=== PATIENT | male | born 1940 | race Caucasian/White ===

== ENCOUNTER 2024-08-01 09:03 | Inpatient (IN) | payer MEDICARE, SELFPAY ==
--- NOTE | 2024-08-01 09:00 | DI.CT_ITS ---
Exam(s) CT HEAD CERVICAL SPINE WO EXAM: CT HEAD CERVICAL SPINE WO CLINICAL HISTORY: Multiple falls. TECHNIQUE: Imaging Protocol: Axial computed tomography images with coronal and sagittal reformatted images were created and reviewed COMPARISON: No exams were available for comparison FINDINGS: Head CT Ventricles and Extra axial spaces: Normal in size and morphology for the patient's age. Hemorrhage: None. Cerebral parenchyma: No evidence of mass or acute infarct. [id number] atrophy consistent wit h the patient's age. Midline shift: None. Brainstem/Cerebellum: Normal. Calvarium: Normal. Visualized Paranasal sinuses/Mastoids: Cerumen in the left external auditory canal. Soft tissues: Unremarkable. Cervical Spine CT BONES: Vertebral body heights are maintained. Alignment is normal. There is no evidence of acute frac ture. Degenerative disc changes and facet degenerative changes are seen. No significant central canal sten osis. SOFT TISSUES: No paraspinal hematoma. The airway appears intact. No pneumothorax is seen at the lung apices. Emphysematous changes noted. IMPRESSION: Head CT: No acute abnormality. C-spine CT: Degenerative changes, no acute abnormality. RADIATION DOSE DELIVERED: 1,298.54mGy.cm Total DLP DATA REPOSITORY: All CT scans at this facility are submitted to the National Radiology Data Registry (NRDR) Dose Index Registry (DIR) with the [employer] (ACR). RADIATION OPTIMIZATION: All CT scans at this facility use at least one of these dose optimization te chniques: automated exposure control; mA and/or kV adjustment per patient size (includes targeted exa ms where dose is matched to clinical indication); or iterative reconstruction.
[2024-08-01 09:12] VITALS: BP 104/49; PULSE 108; RESP 18; TEMP 36.4; O2SAT 95
[2024-08-01 09:30] LABS: Bilirubin Negative (Negative); Blood Small (Negative); Clarity Sl Cloudy (Clear); Glucose Negative (Negative); Ketones Negative (Negative); Leukocyte Esterase Large (Negative); Nitrite Negative (Negative); Specific Gravity 1.015 (1.005-1.025); Urobilinogen 0.2 mg/dL (Up to 0.2); pH 5.5 (5-8)
[2024-08-01 09:35] LABS: C & S Indicated? Yes; WBC >50 HPF (0-5)
[2024-08-01] MEDS: Haloperidol 5 MG/ML VIAL 2 MG IM/IV (09:40)
[2024-08-01 09:44] LABS: Abs Immature Grans 0.38 10^3/uL (0.0-0.06); Absolute Monocyte Count 0.87 10^3/uL (0.1-0.8); Absolute Neutrophil Count 24.48 10^3/uL (1.2-6.7); Basophils % 0.2 %; Eosinophils % 0.5 %; HCT 46.4 % (40.0-50.0); HGB 14.9 g/dL (13.5-17.5); Immature Grans % 1.4 %; Lymphocytes % 2.1 %; MCH 27.2 pg (27.0-33.0); MCHC 32.1 % (32.0-36.0); MCV 85 fL (80-95); MPV 10.5 fL (8.0-11.0); Monocytes % 3.3 %; Neutrophils % 92.5 %; Platelet Count 204 10^3/uL (130-400); RBC 5.47 10^6/uL (4.36-5.78); RDW 13.4 % (11.8-14.1); RDW-SD 41.5 fL
[2024-08-01] MEDS: Fosfomycin Tromethamine 3 GM PACKET PO (09:44)
[2024-08-01 09:47] LABS: Absolute Basophil Count 0.05 10^3/uL (0.0-0.2); Absolute Eosinophil Count 0.13 10^3/uL (0.0-0.7); Absolute Lymphocyte Count 0.56 10^3/uL (1.2-3.4); WBC 26.46 10^3/uL (4.4-10.8)
[2024-08-01 09:59] LABS: Diff Comment Agrees w/ Instrument; RBC Morphology Normal
[2024-08-01 10:02] LABS: ALT 21 U/L (16-63); AST 30 U/L (15-37); Albumin 3.5 g/dL (3.4-5.0); Alkaline Phosphatase 118 U/L (46-116); Anion Gap 12.5 mmol/L (3-11); BUN 36 mg/dL (7-18); Bilirubin, Total 0.89 mg/dL (0.2-1.0); CO2 24.5 mmol/L (21.0-32.0); CREATININE 2.2 mg/dL (0.70-1.30); Calcium 9.5 mg/dL (8.5-10.1); Chloride 105 mmol/L (98-107); Estimated GFR 28.81 (mL/min/1.73m2); Glucose 119 mg/dL (74-106); Magnesium 1.8 mg/dL (1.8-2.4); Potassium 4.3 mmol/L (3.5-5.1); Sodium 142 mmol/L (136-145); Total Protein 8.4 g/dL (6.4-8.2)
--- NOTE | 2024-08-01 10:54 | W.ED.GENAD ---
Discharge Plan Disposition Patient Disposition: Admit to [facility] Condition: Stable Discharge Details Chief Complaint: Fall/Non TraumaCriteria Clinical Impression: UTI (urinary tract infection), Severe sepsis, YESENIA (acute kidney injury), Infectious encephalopathy, Dementia Primary Care Provider: Emil Dominguez ED Provider: Caroline Velez Home Meds and New Rx's Prescriptions: No Action Unable to Obtain HPI General Mode of arrival: EMS. Date/Time Provider Initiated Documentation: 08/01/24 09:14. Limitations to Documentation: altered mental status. Information obtained by: patient, family and old records reviewed. HPI Narrative: HPI: This is an 84-year-old male patient with a past medical history significant for dementia, currently not taking any medications due to patient refusal, who is presenting for evaluation of altered mental status and falls. History is largely obtained from the patient's and daughter, who are at bedside. The patient has had 1 week of worsening confusion, increased agitation, and urinary incontinence. Family was concerned that he may have a urinary tract infection, states that he has not had fevers, has been eating and drinking, and has been ambulatory. Today he took 3 falls in a row, and they noticed that he had pulled the recliner into the kitchen, and had urinated on the floor. EMS was summoned, found him to be hemodynamically appropriate, and brought him in for an evaluation. Family reports that they are typically able to care for him in the home environment but are concerned for his safety given his increased agitation and falls and confusion that is above his baseline. Exam: Gen: Awake and alert, in no apparent distress. HEENT: Non-icteric sclera, pupils equal and reactive, scalp atraumatic Neck: Supple, no step-offs, no tenderness to C-spine Lungs: No apparent respiratory distress, normal respiratory effort. Lung sounds clear and equal bilaterally CV: Appears well perfused, heart with tachycardic rate but regular rhythm Abdomen: Non-distended, soft, nontender : Normal external male genitalia with irritation and eroded ulcers appreciated under the patient's foreskin MSK: Moves 4 extremities without apparent limitation in ROM. No tenderness or step-offs to T or L-spine, chest wall, clavicles, and upper extremities without external signs of trauma, deformity, or tenderness. Pelvis stable to AP compression, bilateral lower extremities without tenderness, deformity, or evidence of external trauma. Skin: Visualized skin without rashes, cyanosis. Neuro: No obvious focal deficits or facial asymmetry. Alert but not oriented to place, time, event. Answers simple questions and follow simple directions. MDM: This is an 84-year-old male patient presenting for evaluation of increasing confusion, incontinence, and falls. Differential includes but is not limited to urinary tract infection, certainly considered other infectious abnormalities such as bacteremia or sepsis, meningitis, though the patient is reassuringly afebrile at this time and systemically looks quite well. I considered metabolic electrolyte derangement, kidney injury, dehydration. Also considered injury such as intracranial hemorrhage (patient is not anticoagulated), cervical spine fracture. No evidence of other traumatic findings, full physical examination. We will obtain laboratory studies to include CBC, CMP, magnesium, urinalysis. I will obtain a CT head and C-spine. We applied zinc cream to the patient's penis given the evidence of irritation concerning for prolonged moisture exposure. ED Course: The patient became quite agitated, trying to get out of bed, and not allowing interventions such as laboratory studies. The patient was unable to be verbally redirected, and we did provide him with a small dose of haloperidol. This was successful in calming the patient, and we were able to perform all imaging and laboratory studies as needed. The patient's urinalysis does show pyuria, leukocyte esterase elevation and small blood, concerning for infection. Given the patient's hesitant to take p.o. meds, I discussed with the family members and we will proceed with a one-time dose of fosfomycin, 3 g, which the patient took orally. I reviewed the patient's laboratory studies, which reveal a leukocytosis to 26 with left shift. No anemia or thrombocytopenia. Chemistry panel without electrolyte derangements, though he does have an elevation in his kidney function from his baseline concerning for YESENIA, with a BUN of 36 and creatinine of 2.2. I provided the patient with 500 cc of isotonic fluids for rehydration. I independently interpreted the patient's CT scans, which showed no evidence of intracranial hemorrhage, skull spine fracture, or other concerning findings. I did shared decision-making conversation with the family members regarding next steps in treatment. The patient's family are concerned about their ability to safely care for the patient in the home, and given that there is a reversible etiology for the patient's increasing confusion I feel the nausea short admission with PT/OT and care management as well as ongoing antibiosis if he does not improve with his dose of fosfomycin are indicated. The hospitalist is graciously accepted this patient for admission to their service for ongoing care. Patient remained hemodynamically appropriate while under my care and was transferred from this department without incident. Caroline Velez MD Related Data Home Medications ?Medication ?Instructions ?Recorded ?Confirmed Unknown [Unable to Obtain] 08/01/24 08/01/24 General Stated Complaint: Fall/Non TraumaCriteria TI: 3 Course Vital Signs Vital signs: Vital Signs Temperature 36.4 C 08/01/24 09:12 Pulse 108 H 08/01/24 09:12 Respiratory Rate 18 08/01/24 09:12 Blood Pressure 104/49 L 08/01/24 09:12 Pulse Oximetry 95 08/01/24 09:12 Temperature 36.4 C 08/01/24 09:12 Temperature Source Temporal Artery Scan 08/01/24 09:12 Pulse 108 H 08/01/24 09:12 Respiratory Rate 18 08/01/24 09:12 Respiratory Effort Normal 08/01/24 09:24 Blood Pressure 104/49 L 08/01/24 09:12 Blood Pressure Position Sitting 08/01/24 09:12 Pulse Oximetry 95 08/01/24 09:12 Oxygen Delivery Method Room Air 08/01/24 09:12 Oxygen Flow Rate 0 08/01/24 09:12 Lab/Test Results Lab/Test Results: 08/01/24 09:21 Urine - Reflex from Ua Urine Culture - Pending Laboratory Tests Range/Units 08/01/24 08/01/24 09:21 09:36 WBC (4.4-10.8) 10^3/uL 26.46 H* RBC (4.36-5.78) 10^6/uL 5.47 Hgb (13.5-17.5) g/dL 14.9 Hct (40.0-50.0) % 46.4 MCV (80-95) fL 85 MCH (27.0-33.0) pg 27.2 MCHC (32.0-36.0) % 32.1 RDW (11.8-14.1) % 13.4 Plt Count (130-400) 10^3/uL 204 MPV (8.0-11.0) fL 10.5 Immature Gran % % 1.4 Neutrophils % % 92.5 Lymphocytes % % 2.1 Monocytes % % 3.3 Eosinophils % % 0.5 Basophils % % 0.2 Nucleated RBC % (0.0-0.3) % 0.0 Absolute Neutrophils (1.2-6.7) 10^3/uL 24.48 H Absolute Lymphocytes (1.2-3.4) 10^3/uL 0.56 L Absolute Monocytes (0.1-0.8) 10^3/uL 0.87 H Absolute Eosinophils (0.0-0.7) 10^3/uL 0.13 Absolute Basophils (0.0-0.2) 10^3/uL 0.05 RBC Morphology Normal Sodium (136-145) mmol/L 142 Potassium (3.5-5.1) mmol/L 4.3 Chloride (98-107) mmol/L 105 Carbon Dioxide (21.0-32.0) mmol/L 24.5 Anion Gap (3-11) mmol/L 12.5 H BUN (7-18) mg/dL 36 H Creatinine (0.70-1.30) mg/dL 2.2 H Est GFR (CKD-EPI 2020) (mL/min/1.73m2) 28.81 Glucose (74-106) mg/dL 119 H Calcium (8.5-10.1) mg/dL 9.5 Magnesium (1.8-2.4) mg/dL 1.8 Total Bilirubin (0.2-1.0) mg/dL 0.89 AST (15-37) U/L 30 ALT (16-63) U/L 21 Alkaline Phosphatase (46-116) U/L 118 H Total Protein (6.4-8.2) g/dL 8.4 H Albumin (3.4-5.0) g/dL 3.5 Urine Color (Yellow) Yellow Urine Clarity (Clear) Sl Cloudy Urine pH (5-8) 5.5 Ur Specific [place] (1.005-1.025) 1.015 Urine Protein (Neg-Trace) mg/dL 30 H Urine Ketones (Negative) mg/dL Negative Urine Blood (Negative) Small H Urine Nitrite (Negative) Negative Urine Bilirubin (Negative) Negative Urine Urobilinogen (Up to 0.2) mg/dL 0.2 Ur Leukocyte Esterase (Negative) Large H Urine RBC Not Applicable Urine WBC (0-5) HPF >50 H Ur Epithelial Cells Not Applicable Urine Crystals Not Applicable Urine Bacteria Not Applicable Urine Mucus Not Applicable Ur Culture Indicated? Yes Urine Glucose (Negative) mg/dL Negative Medical Decision Making Quality:SDOH Health Related Social Needs: Health related social needs housing instability, housed, with risk of homelessness(Z59.811) PFSH All Active Problems (Updated 08/01/24 @ 11:05 by Caroline Velez MD) Dementia (Chronic) Infectious encephalopathy (Acute) YESENIA (acute kidney injury) (Acute) UTI (urinary tract infection) (Acute) Severe sepsis (Acute) Social History Smoking/Tobacco Use Status: Never Smoking risk assessment performed?: Yes Alcohol Intake: never Housing: house Additional Social history: unable to assess d/t dementia
[2024-08-01] MEDS: Normal Saline 500 ML IV (11:00)
--- NOTE | 2024-08-01 11:00 | W.PM.HP.N ---
Date of service: 08/01/24 Time of Service: 11:00 Assessment and Plan Assessment and plan (1) Severe sepsis: Status: Acute Assessment and plan: -patient meets severe sepsis criteria on admission with WBC 26, HR 108, UA highly suggestive of UTI, YESENIA with Cr 2.2 (baseline ~1.6), and increased confusion above baseline suggestive of infectious encephalopathy -lactic acid pending -f/u blood and urine cultures -given fosfomycin in ED -f/u AM CBC (2) UTI (urinary tract infection): Status: Acute Assessment and plan: -as noted above (3) YESENIA (acute kidney injury): Status: Acute Assessment and plan: -as noted above (4) Infectious encephalopathy: Status: Acute Assessment and plan: -patietn with dementia at baseline but normally able to manage him at home -no history of behavioral disturbances -brought in because of increased confusion, urinating and defecating around the home over the last week -also required IM haldol in ED for agitation -monitor mental status/behaviors (5) Dementia: Status: Chronic Assessment and plan: -as noted above -according to patients daughters he can be aggressive and does sundown, they have requested initiation of an HS medication that they may be able to transtion to the outpatient setting -patient has been started on HS seroquel History of Present Illness History of Present Illness Chief Complaint: increased confusion Narrative: 84yo male with history of dementia who presents to the ED for concerns of increased confusion. Patient states that she is normally able to take care of the patient at home with frequent visits from home health, but that over the last week he has been progressively more confused, urinating and defecating around the home and experience two falls earlier today, which is not normal. She states he had not complained of any urinary symptoms, and did not appear to have a fever. In the ED the patient was noted as being confused with an otherwise normal physical exam. His HR was 108, CBC showed WBC 26, Cr 2.1 (baseline ~1.6), and UA highly suggestive of a UTI. He was initially given fosfomycin thinking he may be able to discharge home, but the patient became combative and required IM haldol to complete head/neck CT which were negative. At which time emergency room Physician paged hospitalists for admission of a patient with severe sepsis UTI, YESENIA, and infectious encephalopathy. Review of Systems All systems reviewed & are unremarkable except as noted in HPI and below PFSH All Active Problems (Updated 08/01/24 @ 11:05 by Caroline Velez MD) Dementia (Chronic) Infectious encephalopathy (Acute) YESENIA (acute kidney injury) (Acute) UTI (urinary tract infection) (Acute) Severe sepsis (Acute) Social History Smoking/Tobacco Use Status: Never Smoking risk assessment performed?: Yes Alcohol Intake: never Housing: house Additional Social history: unable to assess d/t dementia Meds Allergies and Home Medications Allergies Allergy/AdvReac Type Severity Reaction Status Date / Time No Known Allergies Allergy Verified 08/01/24 12:28 Home Medications ?Medication ?Instructions ?Recorded ?Confirmed ?Type Unknown [Unable to Obtain] 08/01/24 08/01/24 History Exam Narrative Exam Narrative: elderly gentleman laying in bed in mild distress due to pain, oriented to person only, heart RRR, lungs CTAB, abdomen soft, non-tender, non-distended Results Labs 08/01/24 09:36 08/01/24 09:36 Labs: Laboratory Results - last 24 hr 08/01/24 08/01/24 09:21 09:36 WBC 26.46 H* RBC 5.47 Hgb 14.9 Hct 46.4 MCV 85 MCH 27.2 MCHC 32.1 RDW 13.4 Plt Count 204 MPV 10.5 Immature Gran % 1.4 Neutrophils % 92.5 Lymphocytes % 2.1 Monocytes % 3.3 Eosinophils % 0.5 Basophils % 0.2 Nucleated RBC % 0.0 Absolute Neutrophils 24.48 H Absolute Lymphocytes 0.56 L Absolute Monocytes 0.87 H Absolute Eosinophils 0.13 Absolute Basophils 0.05 RBC Morphology Normal Sodium 142 Potassium 4.3 Chloride 105 Carbon Dioxide 24.5 Anion Gap 12.5 H BUN 36 H Creatinine 2.2 H Est GFR (CKD-EPI 2020) 28.81 Glucose 119 H Calcium 9.5 Magnesium 1.8 Total Bilirubin 0.89 AST 30 ALT 21 Alkaline Phosphatase 118 H Total Protein 8.4 H Albumin 3.5 Urine Color Yellow Urine Clarity Sl Cloudy Urine pH 5.5 Ur Specific [place] 1.015 Urine Protein 30 H Urine Ketones Negative Urine Blood Small H Urine Nitrite Negative Urine Bilirubin Negative Urine Urobilinogen 0.2 Ur Leukocyte Esterase Large H Urine RBC Not Applicable Urine WBC >50 H Ur Epithelial Cells Not Applicable Urine Crystals Not Applicable Urine Bacteria Not Applicable Urine Mucus Not Applicable Ur Culture Indicated? Yes Urine Glucose Negative Last Vital Signs Temp 97.6 F 08/01/24 09:12 Pulse 108 H 08/01/24 09:12 Resp 18 08/01/24 09:12 BP 104/49 L 08/01/24 09:12 Pulse Ox 95 08/01/24 09:12 Time Spent Time spent with Patient: >75 minutes Time was spent: preparing to see the patient(eg.review tests), obtaining and/or reviewing separately otained hiistory, ordering medications,tests, procedures, referring, communicating with other health care team coordinator scheduler, indepentently interpreting results, counseling the patient and care coordination
[2024-08-01 11:50] VITALS: BP 126/71; PULSE 62; RESP 20; TEMP 37.3; O2SAT 95
[2024-08-01 11:55] VITALS: BP 126/71; PULSE 62; RESP 20; TEMP 37.3; O2SAT 95
[2024-08-01 11:56] VITALS: BP 126/71; PULSE 62; RESP 20; TEMP 37.3; O2SAT 95
[2024-08-01 12:00] VITALS: BP 126/71; PULSE 62; RESP 20; TEMP 37.3; O2SAT 95
--- NOTE | 2024-08-01 13:01 | W.PC.ACHO ---
Registration Status: Primary Language: Preferred Language: ED Information & Data Chief Complaint Fall/Non TraumaCriteria 08/01/24 10:55 Triage Note Pt presents via ambulance, 08/01/24 09:12 fell multiple times at home due to weakness. Daughter states he has a history of dementia, has been urinating in random places in the house. UTI? No apparent injuries noted on exam. Most Recent Vital Signs Temperature 37.3 C 08/01/24 12:00 Temperature Source Tympanic 08/01/24 11:56 Pulse 62 08/01/24 12:00 Pulse Rhythm Regular 08/01/24 12:00 Respiratory Rate 20 08/01/24 12:00 Respiratory Effort Normal 08/01/24 12:00 Respiratory Depth Normal 08/01/24 12:00 Respiratory Pattern Normal 08/01/24 12:00 Blood Pressure 126/71 08/01/24 12:00 Blood Pressure Position Sitting 08/01/24 09:12 Pulse Oximetry 95 08/01/24 12:00 Oxygen Delivery Method Room Air 08/01/24 12:00 Oxygen Flow Rate 0 08/01/24 12:00 Pain Level 5 08/01/24 12:00 Allergies No Known Allergies Allergy (Verified 08/01/24 12:28) Precautions Isolation Standard precaution 08/01/24 09:24 IV IV Catheter Type [Right Peripheral IV Forearm] IV Catheter Gauge [Right 20 Forearm] Diet Orders Category Date Time Status Regular/Normal [DIET] Nutrition 08/01/24 Lunch Active Diagnostics 08/01/24 08/01/24 08/01/24 Range/Units 11:00 09:36 09:21 WBC 26.46 H* (4.4-10.8) 10^3/uL RBC 5.47 (4.36-5.78) 10^6/uL Hgb 14.9 (13.5-17.5) g/dL Hct 46.4 (40.0-50.0) % MCV 85 (80-95) fL MCH 27.2 (27.0-33.0) pg MCHC 32.1 (32.0-36.0) % RDW 13.4 (11.8-14.1) % Plt Count 204 (130-400) 10^3/uL MPV 10.5 (8.0-11.0) fL Immature Gran % 1.4 % Neutrophils % 92.5 % Lymphocytes % 2.1 % Monocytes % 3.3 % Eosinophils % 0.5 % Basophils % 0.2 % Nucleated RBC % 0.0 (0.0-0.3) % Absolute Neutrophils 24.48 H (1.2-6.7) 10^3/uL Absolute Lymphocytes 0.56 L (1.2-3.4) 10^3/uL Absolute Monocytes 0.87 H (0.1-0.8) 10^3/uL Absolute Eosinophils 0.13 (0.0-0.7) 10^3/uL Absolute Basophils 0.05 (0.0-0.2) 10^3/uL RBC Morphology Normal VBG Lactate Pending Sodium 142 (136-145) mmol/L Potassium 4.3 (3.5-5.1) mmol/L Chloride 105 (98-107) mmol/L Carbon Dioxide 24.5 (21.0-32.0) mmol/L Anion Gap 12.5 H (3-11) mmol/L BUN 36 H (7-18) mg/dL Creatinine 2.2 H (0.70-1.30) mg/dL Est GFR (CKD-EPI 2020) 28.81 (mL/min/1.73m2) Glucose 119 H (74-106) mg/dL Calcium 9.5 (8.5-10.1) mg/dL Magnesium 1.8 (1.8-2.4) mg/dL Total Bilirubin 0.89 (0.2-1.0) mg/dL AST 30 (15-37) U/L ALT 21 (16-63) U/L Alkaline Phosphatase 118 H (46-116) U/L Total Protein 8.4 H (6.4-8.2) g/dL Albumin 3.5 (3.4-5.0) g/dL Urine Color Yellow (Yellow) Urine Clarity Sl Cloudy (Clear) Urine pH 5.5 (5-8) Ur Specific [place] 1.015 (1.005-1.025) Urine Protein 30 H (Neg-Trace) mg/dL Urine Ketones Negative (Negative) mg/dL Urine Blood Small H (Negative) Urine Nitrite Negative (Negative) Urine Bilirubin Negative (Negative) Urine Urobilinogen 0.2 (Up to 0.2) mg/dL Ur Leukocyte Esterase Large H (Negative) Urine RBC Not Applicable Urine WBC >50 H (0-5) HPF Ur Epithelial Cells Not Applicable Urine Crystals Not Applicable Urine Bacteria Not Applicable Urine Mucus Not Applicable Ur Culture Indicated? Yes Urine Glucose Negative (Negative) mg/dL 08/01/24 11:00 Blood Culture - Pending Blood 08/01/24 11:00 Blood Culture - Pending Blood 08/01/24 09:21 Urine Culture - Pending Urine - Reflex from Ua Intake and Output - 24 Hour Total 08/01/24 08:59 thru 08/01/24 12:00 Weight 77.6 kg Other: Urine Appearance Cloudy Falls Risk Assessment History of Falls Admit Due to Fall 08/01/24 12:00 Contributing Factors Confusion 08/01/24 12:00 Ambulatory Aids Independent 08/01/24 12:00 Tubes/Lines None 08/01/24 12:00 Gait Evaluation W/no contributing factors 08/01/24 12:00 Cognition Cognitive impairment 08/01/24 12:00 Fall Total Score 53 08/01/24 12:00 Level of Risk High Risk 08/01/24 12:00 Problems Dementia (Chronic) Infectious encephalopathy (Acute) YESENIA (acute kidney injury) (Acute) UTI (urinary tract infection) (Acute) Severe sepsis (Acute) v v v v v v v v v Sending and/or Receiving Nurses: Please use comment section below to note any information pertinent to the patient hand-off not included above. Information / Comments: Report received from: ANN Buckner @ [facility]
[2024-08-01] MEDS: Acetaminophen 325 MG TAB PO ×2 (13:08→19:49)
[2024-08-01 13:16] LABS: Lactate 2.1 mmol/L (0.6-1.4)
--- NOTE | 2024-08-01 13:31 | PHA.REVIEW2 ---
Pharmacy Admission Review Admission Clinical Review Admission Pharmacy Review: Infectious encephalopathy (Acute) YESENIA (acute kidney injury) (Acute) UTI (urinary tract infection) (Acute) Severe sepsis (Acute) No Known Allergies Allergy (Verified 08/01/24 12:28) Resuscitation Status Full Code Height 5 ft 8 in Weight 77.6 kg Pharmacy Admission Review Renal Dosing Renal Dosing: BUN 36 mg/dL (7-18) H 08/01/24 09:36 Creatinine 2.2 mg/dL (0.70-1.30) H 08/01/24 09:36 Medications needing adjustments: Reviewed (CrCl 27 mL/min) List of meds needing interventions: Current medications are okay Anticoagulation Anticoagulation: Hgb 14.9 g/dL (13.5-17.5) 08/01/24 09:36 Hct 46.4 % (40.0-50.0) 08/01/24 09:36 Plt Count 204 10^3/uL (130-400) 08/01/24 09:36 Creatinine 2.2 mg/dL (0.70-1.30) H 08/01/24 09:36 DVT Prophylaxis: Intervened (No order was put in, asked provider if they would like one. Provider asked that Lovenox daily be added.) Medications: Enoxaparin (30mg daily - CrCl < 30) Relevant Labs Relevant Labs: Sodium 142 mmol/L (136-145) 08/01/24 09:36 Potassium 4.3 mmol/L (3.5-5.1) 08/01/24 09:36 Chloride 105 mmol/L (98-107) 08/01/24 09:36 Magnesium 1.8 mg/dL (1.8-2.4) 08/01/24 09:36 Electrolytes, C-Reactive P, ESR: Reviewed Cardiac Review BP, HR, EF%: Reviewed (HR and BP WNL) QTc Review QTc: Reviewed (No EKG on file) IV to PO Switch IV Medications: Reviewed Home Meds Home Med List reviewed: Reviewed Relevent Home Meds Not ordered & why?: No known home meds Current Meds Current Medication Order Review: Reviewed Pharmacy Antibiotic Review Relevant Labs: WBC 26.46 10^3/uL (4.4-10.8) H* 08/01/24 09:36 Temperature 37.3 C Temperature 37.3 C Temperature 37.3 C Temperature 37.3 C Temperature 36.4 C Pharmacy Antibiotic Activity: C/S review and Reviewed, no change Comments: Patient received Fosfomycin x 1 in ED for sepsis/UTI. Blood and urine cultures are pending.
[2024-08-01] MEDS: Ibuprofen 600 MG TAB PO ×2 (15:25→23:03)
[2024-08-01] MEDS: MORPHine 2 MG/ML SYR 1 MG IVP ×2 (18:12→22:05)
[2024-08-01] MEDS: Normal Saline Flush 10 ML SYR IVP ×2 (18:15→20:12)
[2024-08-01] MEDS: QUEtiapine 25 MG TAB PO (19:50)
[2024-08-01 22:17] VITALS: BP 100/55; PULSE 68; RESP 18; TEMP 37.8; O2SAT 96
[2024-08-02 04:03] VITALS: BP 113/103; PULSE 78; RESP 20; TEMP 37; O2SAT 98
[2024-08-02] MEDS: MORPHine 2 MG/ML SYR 1 MG IVP (04:11)
[2024-08-02] MEDS: Normal Saline Flush 10 ML SYR IVP ×8 (04:11→20:48)
--- NOTE | 2024-08-02 04:57 | W.EVENT ---
Date of service: 08/02/24 Time of Service: 04:57 Event Note: This is an 84-year-old gentleman admitted with advanced dementia and frequent falls having severe sepsis on antibiotic to cover possible etiologies including UTI. He also appears to have acute kidney injury. He did receive Haldol and the ED which was somewhat helpful and then a small dose of Seroquel 25 mg in the early evening which was repeated x 1 for total of 50 mg orally. This had minimal to moderate effect. Early in the morning he began to have complaints of worsening and severe right hip pain but was vague. Imaging was not done of the pelvis which will be performed. Exam did reveal some resistance to straighten his hip, lying in the right position and direct palpation of both hips was not crepitus and did cause response of groaning and grimacing though he did not appear to have severe tenderness with palpation. Knees were less tender and there was no swelling. The knees were also flexed and had resistance to straightening. Assessment/plan: This is a patient with dementia and sepsis with possible infectious encephalopathy not doing well with yelling out and requiring frequent attendance. He has not complained of lower extremity pain of the hips and had ambulated earlier. Imaging of the pelvis with both hips will be performed. Morphine will be increased to 2 mg every 2 hours as needed watch for oversedation. He should have increased dose of Seroquel at night considered not having oversedation with 50 mg last evening and possibly twice daily low-dose Depakote since he has a long-term history of agitation with dementia at home. The Depakote could be initiated if he continues to be combative and demented after adequate treatment of his infectious encephalopathy. Time Spent with Patient Time spent in critical care(minutes): 35 Time Spent Included: Chart review, Documenting critically ill care, Time at immediate bedside and Discussing critically ill care with other medical staff
[2024-08-02] MEDS: MORPHine 2 MG/ML SYR IVP ×6 (05:12→22:30)
[2024-08-02 06:47] LABS: HCT 41.1 % (40.0-50.0); HGB 13.2 g/dL (13.5-17.5); MCHC 32.1 % (32.0-36.0); MCV 84 fL (80-95); MPV 10.9 fL (8.0-11.0); Platelet Count 152 10^3/uL (130-400); RBC 4.88 10^6/uL (4.36-5.78); RDW 13.7 % (11.8-14.1); RDW-SD 42.6 fL; WBC 14.64 10^3/uL (4.4-10.8)
--- NOTE | 2024-08-02 07:00 | DI.RAD_ITS ---
Exam(s) XR HIP PELVIS ADULT BL EXAM: XR HIP PELVIS ADULT BL CLINICAL HISTORY: Dementia/falls with complaint of hip pain/vague. TECHNIQUE: 2D digital imaging was performed of the pelvis and bilateral hips. Three images were obt ained. AP pelvis and lateral views of both hips were obtained. COMPARISON: CR RIGHT HIP COMPLETE from 09/26/2013 FINDINGS: BONES: No acute fracture is present. No bony destructive lesion is seen. JOINTS: No dislocation present. Since the prior examination the patient has undergone a right total h ip arthroplasty. The left hip shows mild joint space narrowing but is otherwise well maintained. Th e sacroiliac joints are unremarkable as is the symphysis pubis. Degenerative changes are seen in the lower visualized lumbar spine. SOFT TISSUE: Vascular calcifications are present. IMPRESSION: No acute fracture or dislocation. DATA REPOSITORY: RADIATION DOSE DELIVERED:
[2024-08-02 07:34] LABS: Anion Gap 8.7 mmol/L (3-11); BUN 42 mg/dL (7-18); CO2 24.3 mmol/L (21.0-32.0); CREATININE 2.5 mg/dL (0.70-1.30); Chloride 106 mmol/L (98-107); Estimated GFR 24.72 (mL/min/1.73m2); Glucose 111 mg/dL (74-106); Potassium 3.9 mmol/L (3.5-5.1); Sodium 139 mmol/L (136-145)
[2024-08-02 07:46] LABS: Calcium 8.7 mg/dL (8.5-10.1)
[2024-08-02] MEDS: Acetaminophen 325 MG TAB PO ×2 (08:23→18:39)
[2024-08-02] MEDS: Enoxaparin 30 MG/0.3 ML SYR SC (09:58)
--- NOTE | 2024-08-02 11:41 | W.PALLCONSUL ---
Date of service: 08/02/24 Time of Service: 10:00 History of Present Illness Narrative: Mr. Torres is an 84 y/o M currently hospitalized at [facility] 2/2 sepsis; PMHx sig for dementia, h/o R hip replacement; present today daughter Elaina, and daughter Tomeka Hospital Course: Brian presented to ED on 08/01 after 1 week worsening agitation and changes in urinary incontinence, AMS and 3 falls on day of ED presentation; work up consistent w/UTI; agitation in ED treated appropriately w/ IM haldol; d/t pt h/o refusing oral meds, given 1 time dose of fofsomycin for UTI tx; admitted MS d/t not safe to return home w/current changes in MS and agitation; noted sundowning via family, started Seroquel night of 08/02, 25mg, repeated again for today dose of 50mg night one, overnight increased pain via patient on RLE hip, given morphine 2mg w/good effect; scheduled for XR today, unable to obtain d/t behaviors daughter Elaina at bedside at first meeting w/PC, Brian on way to XR, daughter providing sig support for reducing agitation for transfer w/good effect; per daughter already have permission to be present at all times to reduce agitation. family preference to be called at first signs of agitation, they live close by and are willing to present. They want to be notified before ANY procedures, labs, imaging, etc to be available for Brian's well being. goal to get XR today as RLE pain not previously a complaint of his, Elaina notes he had his R hip replaced years ago. Increased pain w/grimace and groaning concerning, would want XR to check, elise after falls at home yesterday. Brian lives in [place] w/ Frances, whom provides significant care for him. full IADL support, however he continues to stack wood and fireplace, walk and putter/armando around home at baseline. puts him in incontinence briefs, however he removes these. Baseline, communicates with family, expresses needs, participates in care, can follow written instructions on white board. did get some sundowning, increased confusion at end of day . was driving until a year ago; diagnosed w/dementia around 5 years ago . history of alcohol use, was always a paranoid man, concerns w/people stealing things, taking advantage, etc preference for quality vs quantity for health goals. shared decision making to not obtain head CT, as if bleed identified would not treat. daughters feel strongly he is a DNR/I, treat what is treatable, give IVF, abx as indicated, no feeding tube. will review w/ prior to signing paperwork. Family has prior permission to be at hospital at any time to reduce agitation and aggression. They would like to be called immediately as earliest signs of agitation and have agreed to come at any time. call Tomeka first: [phone] - calls before any procedure, lab, imaging, or intervention - okay with IM haldol prior to next attempt at XR if determined necessary; would like to continue Seroquel trial Assessment and Plan Assessment and plan (1) Dementia: Status: Chronic Assessment and plan: Not at baseline, baseline sounds close to 6c-d per daughter's today, will continue to assess; at 7b today w/no verbal communication w/ing Seroquel 50mg QHS, started 08/02/24 IM Haldol PRN - recommend calling family prior to administration may consider AM low dose Seroquel if behaviors persist, keep nighttime dose at 50mg (2) UTI (urinary tract infection): Status: Acute Assessment and plan: 1 time fofsomycin in ED (3) Severe sepsis: Status: Acute Assessment and plan: met criteria on admission fosfomycin in ED labs this morning (4) ACP (advance care planning): Status: Acute Assessment and plan: POC while hospitalized: contact family prior to any labs, procedures, earliest signs of agitation reviewed COLST form: DNR/I, trial interventions when cure possible w/IVF/abx, NO feeding tube; COLST completed, to sign at later date, DNR/I status changed in chart for this hospital admission - limited interventions, would avoid work up if treatment would be invasive (CT for brain bleed for example) (5) Palliative care encounter: Status: Acute Assessment and plan: PC will plan on following up outpatient once patient returns home, to be scheduled via daughter Tomeka - may be available again during this hospital stay as needed, please contact PC office Review of Systems Narrative: as per HPI PFSH All Active Problems (Updated 08/02/24 @ 11:[address] NP) Palliative care encounter (Acute) ACP (advance care planning) (Acute) Dementia (Chronic) Infectious encephalopathy (Acute) YESENIA (acute kidney injury) (Acute) UTI (urinary tract infection) (Acute) Severe sepsis (Acute) Social History Smoking/Tobacco Use Status: Never Smoking risk assessment performed?: Yes Alcohol Intake: never Housing: house Additional Social history: unable to assess d/t dementia Exam Narrative Exam Narrative: General: older adult male, lying in hospital bed, groan w/repositioning; 2nd visit: sitting at side of bed w/no pants, fidgeting w/pant legs, non-agitated; does not respond to verbal stimuli; awake Psych: no verbal communication, groan/agitation soothed w/presence of daughter during transfer from hospital bed to stretcher prior to XR, daughter remains at bedside for XR Results Last Vital Signs Temp 98.6 F 08/02/24 04:03 Pulse 78 08/02/24 04:03 Resp 20 08/02/24 04:03 BP 113/103 H 08/02/24 04:03 Pulse Ox 98 08/02/24 04:03 Labs 08/02/24 06:17 08/02/24 06:17 Labs: Laboratory Results - last 24 hr 08/01/24 08/02/24 12:51 06:17 WBC 14.64 H RBC 4.88 Hgb 13.2 L Hct 41.1 MCV 84 MCH 27.0 MCHC 32.1 RDW 13.7 Plt Count 152 MPV 10.9 VBG Lactate 2.1 H Sodium 139 Potassium 3.9 Chloride 106 Carbon Dioxide 24.3 Anion Gap 8.7 BUN 42 H Creatinine 2.5 H Est GFR (CKD-EPI 2020) 24.72 Glucose 111 H Calcium 8.7 Magnesium 2.0 Time Spent Time Spent with Patient Time Spent(min): 80
[2024-08-02 11:58] VITALS: BP 112/65; PULSE 84; RESP 15; TEMP 36.4; O2SAT 94
--- NOTE | 2024-08-02 13:15 | PT.INIE ---
PT Notes Visit Reasons: severe sepsis, UTI Physical Therapy Inpatient Initial Evaluation Date: 08/02/2024 Referring Doctor: Parth Oglesby MD PT Orders: PT CONSULT: Eval/Treat Precautions: Fall. Standard. Activity as tolerated. Patient Profile/Admitting Diagnosis: Brian is an 84-year-old male who presented to the ED on 08/01/2024 due to a week of worsening altered mental status, urinary and fecal incontinence, agitation, and falls x 3 at home. Patient is admitted for management of severe sepsis with resultant infectious encephalopathy, UTI, YESENIA, and worsened dementia symptoms. PMHX: All Active Problems (Updated 08/01/24 @ 11:05 by Caroline Velez MD) Dementia (Chronic) Infectious encephalopathy (Acute) YESENIA (acute kidney injury) (Acute) UTI (urinary tract infection) (Acute) Severe sepsis (Acute) Social History/Home Situation: Daughters tomeka and Elaina reporters for this session. Both daughters said that patient has been ambulatory indoors without an assistive device. Minimally dependent on with dressing and abthing. able to set patient up at home so she could go out and do errands for an hour. utilizes a caregiver to stay with patient for any outside activity longer than an hour. Before this hospitalization, patient has been able to function with minimal supervision indoors. 2 step to enter the house. Patient sleeps on the couch on the main floor. Equipment Owned/DME: None. Resistant to using any assistive device. Subjective: Patient was asleep when PT came in around 1:15 PM today, daughter Tomeka said that the Morphine just started to kick in. Patient now awake during second visit. Per daughter Tomeka, patient is more lucid than he has ever been since admission. Patient was able to respond appropriately and follow single-step commands. Objective: General Observation: Needed frequent redirection throughout session. Listens better with a familiar face and voice present in room. Distracted by this unfamiliar environment he is in. Mental Status: Alert, oriented to self only. Unable to call daughter by her name. Pain: Patient demonstrates bent trunk and decreased tolerance for walking for this session, needing to sit down after walking to the door. Palpation to low back areas, gluteal areas, an B hips did not cause any withdrawal nor any wincing/grimacing Vital Signs: Closely monitored by nursing staff ROM: Right Upper Extremity: Grossly WFL Left Upper Extremity: Grossly WFL Right Lower Extremity: Grossly WFL Left Lower Extremity: Grossly WFL Strength: Right Upper Extremity: Grossly 4/5 Left Upper Extremity: Grossly 4/5 Right Lower Extremity: Grossly 4-/5 Left Lower Extremity: Grossly 4-/5 Bed Mobility/Transfers: Maximal verbal and visual cueing provided for use of B hands as needed for support, movement sequence, AD management, and posture to reduce fall risk and minimize pain report. Sit to stand with minimal assist of 2 Stand to sit with minimal assist of 2 Gait: Patient tolerated in-room ambulation of up to 30 feet using no assistive device but with PT and daughter Tomeka on each side of the patient. Per daughter, patient walked a little slower than he usually have prior to admission, appeared more hunched and somewhat protecting his low back. Fatigued right after activity. Was able to stand for at least 2 minutes after the short walk. Balance: Static Sitting: Normal Dynamic Sitting: Good Static Standing: Fair Dynamic Standing: Fair Special Tests: Mobility Limitations Standardized Measure [facility]-PAC 6 clicks Basic Mobility Inpatient Short Form: Raw Score: 18 CMS Score: 47% deficit Informed Consent/Education: Patient was instructed in purpose of PT consult and plan of care. Agreeable to proceed with established PT POC to achieve personal goals. Assessment: Did have a period of lucidity during second attempt at continuing mobility assessment which allowed for completion of transfer and ambulation with assistance. Demonstrated trunk flexion bias as a position of comfort while walking. Patient presents with clinical signs and symptoms consistent with current/admitting diagnoses that have resulted to mobility limitations, gait instability, generalized weakness, and overall ADL decline as demonstrated by the following impairment level findings: 1. Decreased strength to B UE/LE major muscle groups 2. Impaired sitting/standing balance 3. Impaired activity tolerance 4. Pain in low back during walking Impairments are contributing to the following functional limitations: 1. Decline in bed mobility skills 2. Decline in transfer skills 3. Difficulty with ambulation without assistive device and physical assistance 4. Increased completion time for mobility ADL performance 5. Increased risk for falls 6. Difficulty with managing steps alone safely Patient is assessed as a 61790 moderate complexity based on the following: History: 84-year-old male with past medical history as indicated above Examination: Demonstrable impairment in strength, balance, and mobility level with underlying impairments and functional limitations as exhibited above as well as deficit score of 47% utilizing the [facility] Mobility Inpatient Short Form Presentation: Evolving Decision Makin moderate complexity Goals: Goals X1 week 1. Supine-Sit supervision 2. Sit-Supine supervision 3. Sit-Stand supervision 4. Stand-Sit supervision 5. Bed-Chair supervision 6. Chair-Bed supervision 7. Stand by assist gait on level surface with use of for at least [] feet without report of pain nor dyspnea 8. Stand by assist stair negotiation while holding onto [] rails for at least [] steps without report of pain nor dyspnea 9. Stand by assist with home exercise program 10. Good static and dynamic standing balance/tolerance Plan of Care/Treatment Plan: 1-2x/day, 7 days/week x 1 week. Plan of care has been reviewed with the DIESEL ENGINE FITTER providing the service under Physical Therapy direction. Initiate Physical Therapy intervention for pain management as needed, strengthening, bed mobility, transfers, gait, stairs, balance training, and use of assistive device. DISCHARGE RECOMMENDATIONS: [] Home with no services [] [X] Home with services. Patient will benefit from home health PT services in order to progress mobility level using least restrictive assistive ambulatory device, assess home safety, identify additional equipment needs, and establish a functional maintenance program that will increase ability of patient to remain at home. [] Home with outpatient PT [] [] SNF for continued rehabilitation [] [] Histological Illustrator Care [] [] SNF versus LTC based on ability to participate and progress [] TREATMENT CODE/TIME: 15917 x 25 minutes for 1 unit, 85466 x 31 minutes for 2 units (13:15-13:41 and 14:29-15:09). Thank you for the opportunity to participate in the care of this patient. Brittany Schafer PT, DPT, CLT [facility] [place], [place]
--- NOTE | 2024-08-02 15:22 | PGE_ITS ---
Date of Service Date of service: 08/02/24 Time of Service: 15:22 Assessment and Plan Assessment and plan (1) Severe sepsis: Status: Acute Assessment and plan: -patient meets severe sepsis criteria on admission with WBC 26, HR 108, UA highly suggestive of UTI, YESENIA with Cr 2.2 (baseline ~1.6), and increased confusion above baseline suggestive of infectious encephalopathy -lactic acid pending -f/u blood and urine cultures -given fosfomycin in ED -f/u AM CBC (2) UTI (urinary tract infection): Status: Acute Assessment and plan: -as noted above (3) YESENIA (acute kidney injury): Status: Acute Assessment and plan: -as noted above (4) Infectious encephalopathy: Status: Acute Assessment and plan: -patient with dementia at baseline but normally able to manage him at home -brought in because of increased confusion, urinating and defecating around the home over the last week -also required IM haldol in ED for agitation -monitor mental status/behaviors (5) Dementia: Status: Chronic Assessment and plan: -as noted above -patient closer to baseline though not 100% there according to his daughters -can be aggressive and does sundown, they have requested initiation of an HS medication that they may be able to transtion to the outpatient setting -patient has been started on HS seroquel which will be continued (6) Back pain: Status: Acute Assessment and plan: -likely due to muscle strain from falls CROP SPECIALIST -no palpable pain or abnormalities in back or hip -will again attempt hip/pelvis imaging, but will appropriately pre-medicate with both IV morphine and haldol Subjective Subjective Interval history since last seen: Patient has been more intermittently awake today but still more confused and c ombative as compared to baseline. Prolonged conversation was had with patient's daughters regarding his care. They asked that stronger consideration be made by staff in understanding patient's dementia, and behaviors in order to set him up for successful treatment while hospitalized. This includes awareness of staff prior to going into his room of his dementia diagnosis and not startling him or waking him up, as well as being more open minded to methods and assistance from his 2 daughters that may help either prevent behaviors or de escalate more difficult situations. Exam Narrative Exam Narrative: elderly gentleman laying in bed in mild distress due to pain, oriented to person only, heart RRR, lungs CTAB, abdomen soft, non-tender, non-distended Objective Last Vital Signs Temp 97.5 F L 08/02/24 11:58 Pulse 84 08/02/24 11:58 Resp 15 08/02/24 11:58 BP 112/65 08/02/24 11:58 Pulse Ox 94 08/02/24 11:58 Laboratory Results - last 24 hr 08/02/24 06:17 WBC 14.64 H RBC 4.88 Hgb 13.2 L Hct 41.1 MCV 84 MCH 27.0 MCHC 32.1 RDW 13.7 Plt Count 152 MPV 10.9 Sodium 139 Potassium 3.9 Chloride 106 Carbon Dioxide 24.3 Anion Gap 8.7 BUN 42 H Creatinine 2.5 H Est GFR (CKD-EPI 2020) 24.72 Glucose 111 H Calcium 8.7 Magnesium 2.0 Time Spent with Patient Time Spent with Patient: >50 minutes Time was spent: preparing to see the patient(eg.review tests), obtaining and/or reviewing separately otained hiistory, ordering medications,tests, procedures, referring, communicating with other health resident care manager rn, indepentently interpreting results, counseling the patient and care coordination
--- NOTE | 2024-08-02 15:36 | INITIAL_ITS ---
Date of service: 08/02/24 Time of Service: 13:00 Care Management Initial Assmt Initial Assessment Reason for Hospitalization: sepsis, UTI, Functional Status/Living Situation Patient Presentation: Brian presented to ED on 08/01 after 1 week worsening agitation and changes in urinary incontinence, AMS and 3 falls on day of ED presentation; work up consistent w/UTI. When CM met with him, his 2 daughters, Tomeka and Angelina, were present. Brian was antsy, could not stay still. Kept rising and sitting and trying to ambulate. His daughters stated that this is very often the case. He never sleeps well, sleeps in a recliner and roams the house most of the night. The daughters are concerned that he is a flight risk at home, and have made many suggestions to their mom regarding increasing his safety at home. CM spoke with Belinda, Brian's , via speaker phone with daughters present. They are all open to HH services at home, if Brian's mental status improves withtx of his UTI. They would like full services. They are also open to SNF placement, short-term, if that is deemed necessary. Family is requesting that they be notified for any signs of agitation. They are able to calm him and do not want any behaviors to escalate. Town of Residence: [place] Resides with: Spouse (Belinda) Significant Other/Family: Local (daughters Tomeka and Angelina live locally. Tomeka is a school nurse, and Angelina is a environmental compliance specialist, and has significant training in dealing with the agitation her dad often shows. A son lives in [place]) Caregiver/Guardian: Belinda is the main caregiver. They do have private pay help in the home as well. Natural Supports: Family Employment Status: Retired Instrumental Activities of Daily Living (ADLs): Requires support with Dishes/f ood prep, Animal Taxonomist, Groceries, Heat/Utilities, Laundry, Transportation and Other (bathing, feeding, toileting) Medications Medication Management: No Issues/Barriers identified Physical Functioning/Mobility Assistive Device: will not use a walker. Advance Directives Advance Directives: Do you have an Advance Directive: Y 02/01/18 10:52 AD On File at [facility]: Y 02/01/18 10:52 Date Asked 02/01/18 01/29/18 19:35 AD Date Reviewed 08/01/24 08/01/24 09:16 COLST On File at [facility] COLST Date Scanned Comment: completed, updated with Ave Doe NP today Code Status Resuscitation Status DNR/DNI Insurance Coverage/Financial Issues Insurance: [facility] Medicare Advantage Financial Issues: none Care Team Visit Care Team Role Provider Type Emil Dominguez MD Primary Care Provider [facility] STAFF PHYSICIAN InPatient Melchor Kali Other Providers OTHER Caroline Velez MD Emergency Provider [facility] STAFF PHYSICIAN Parth Oglesby MD Admit Provider [facility] STAFF PHYSICIAN Attending Provider Discharge Potential Discharge Needs: PT Evaluation and PCP F/U Appt Anticipated Barriers to Discharge: None Identified (none at this time.) Patient/Family Education Needs: Review discharge instructions, discuss Ask Me Three Transportation: Other (dependent on disposition. Daughters are very involved in care.) Plan: Anticipate that Brian will discharge home with full HH support - RN, PT, OT, TIN RECOVERY WORKER vs SNF for short term rehab. He will likely transport with one of his daughters in a private vehicle. CM will continue to follow PFSH All Active Problems (Updated 08/02/24 @ 15:26 by Parth Oglesby MD) Back pain (Acute) Palliative care encounter (Acute) ACP (advance care planning) (Acute) Dementia (Chronic) Infectious encephalopathy (Acute) YESENIA (acute kidney injury) (Acute) UTI (urinary tract infection) (Acute) Severe sepsis (Acute) Social History Smoking/Tobacco Use Status: Never Smoking risk assessment performed?: Yes Alcohol Intake: never Housing: house Additional Social history: unable to assess d/t dementia Readmission Within the Past 30 Days Yes or No: No SDOH(Care Management) Screening Will the Patient Participate in the Screening?: Unable to obtain Do you worry about having a steady place to live?: no Problems where you live: no known problems In the past 12 months, have you had to go without electric, gas, oil or water in your home?: no Have you or anyone in your house had to go without enough food to eat?: no Has lack of transportation kept you from medical appointments or from doing things needed for daily living?: no Has anyone in your support network made you feel unsafe for any reason?: choose not to answer Social Determinants of Health Comments(SDOH Details): PT WITH DEMENTIA FAMILY ANSWERED QUESTIONS Anticipated HH Services Anticipated HH Services at Discharge [facility] Needed, TIN RECOVERY WORKER, OT, PT and RN ([facility] SNF).
[2024-08-02] MEDS: Haloperidol 5 MG/ML VIAL 2 MG IM/IV (15:41)
[2024-08-02 17:00] VITALS: BP 127/89; PULSE 89; RESP 22; TEMP 36.9; O2SAT 94
[2024-08-02] MEDS: Diclofenac 1% Gel 100 GM TUBE TP ×2 (17:53→20:48)
[2024-08-02] MEDS: Ibuprofen 600 MG TAB PO (18:39)
[2024-08-02] MEDS: QUEtiapine 25 MG TAB PO (20:30)
[2024-08-02 22:26] VITALS: BP 129/80; PULSE 73; RESP 16; TEMP 36.4; O2SAT 93
[2024-08-03] MEDS: MORPHine 2 MG/ML SYR IVP ×5 (06:01→23:21)
--- NOTE | 2024-08-03 09:15 | PT.INTREAT ---
PT Notes Visit Reasons: severe sepsis, UTI Date: 08/03/24 PRECAUTIONS: Fall. Standard. Activity as tolerated. SUBJECTIVE: Patient with daughter when approached for therapy this morning, pt having a hard time with altered mental status, trying to get out of bed not able to follow instructions and is agitated with patient daughter Elaina able to calm pt down due to familiarity and usual routine. Nurse Kyra and nurse Osmar was also present to provide assistance. OBJECTIVE: ?agitated, trying to get out of bed, showing signs of necessity to use urinal/commode ? PAIN: unable to verbalize but seems to have groin/genital discomfort VITALS: monitored by nursing Therapeutic Activities 48445: Direct one-on-one instruction in dynamic activities to improve functional performance. ?? BED MOBILITY/TRANSFERS? Rolling L/R: close supervision Supine-sit: ?close supervision? Sit-supine: ?close supervision? Sit-stand: ? min A +2 initially, min A +1 on consecutice ? Stand-sit: ?? min A? Bed-Chair:? ?Not performed ? Chair-bed: not performed Provided skilled cues and instruction on performance and technique throughout. Gait Training 99912: Direct one-on-one instruction and skilled instruction in: Employing an assistive device Modified weight-bearing status Movement sequencing Turning and movement with proper form Provided verbal cues for equipment management and technique Provided instruction in gait pattern Patient education regarding pacing and breathing techniques to maximize activity tolerance? GAIT? Assistive Device: ??none? Weight bearing: FWB Assist: ? Max redirection/Close guarding for safety? Distance:?? static standing multiple time to allow for ADL's, side to side to get situated better before going back in bed(pt initiation).? Deviation: ? confused, hunch forward, partially bent knee, WBOS ? ASSESSMENT:?Daughter's presence helps in calming pt down, there was a time of lucidiy when patient elder brother arrived with patient instatly recalling marinether's name and was also able to engage in conversation, patient able to calm down and tray his own brief, pants and shirt with daughter's guidance, close contact guard during sit to stand transitions for safety, patient able to go back in bed after getting dressed and agreed to having coffee with elder brother after getting back in bed. PLAN: Continue with balance training, global strengthening and general conditioning for improved safety, mobility and activity tolerance until pt is ready for DC. TREATMENT CODE/TIME: [id number] 25mins (8:35-9:00am)
[2024-08-03] MEDS: Diclofenac 1% Gel 100 GM TUBE TP ×4 (10:21→22:27)
--- NOTE | 2024-08-03 10:50 | W.PM.PROGNOT ---
Date of Service Date of service: 08/03/24 Time of Service: 10:50 Assessment and Plan Assessment and plan (1) Severe sepsis: Status: Acute Assessment and plan: -patient meets severe sepsis criteria on admission with WBC 26, HR 108, UA highly suggestive of UTI, YESENIA with Cr 2.2 (baseline ~1.6), and increased confusion above baseline suggestive of infectious encephalopathy -lactic acid negative -blood cultures negative, urine cultures contaminated -given fosfomycin in ED -WBC down to 14.6 from 26 on admission (2) UTI (urinary tract infection): Status: Acute Assessment and plan: -as noted above (3) YESENIA (acute kidney injury): Status: Acute Assessment and plan: -as noted above (4) Infectious encephalopathy: Status: Acute Assessment and plan: -patient with dementia at baseline but normally able to manage him at home -brought in because of increased confusion, urinating and defecating around the home over the last week -also required IM haldol in ED for agitation -monitor mental status/behaviors (5) Dementia: Status: Chronic Assessment and plan: -as noted above -patient closer to baseline though not 100% there according to his daughters -can be aggressive and does sundown, they have requested initiation of an HS medication that they may be able to transtion to the outpatient setting -patient has been started on HS seroquel which will be continued (6) Back pain: Status: Acute Assessment and plan: -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 Discussion with patients daughter and his who believe that he is closer to his baseline, but at this point is still too weak to go home and be taken care of by his . They ask that he be reassessed by PT for consideration of subacute rehab placement. Exam Narrative Exam Narrative: elderly gentleman laying in bed in mild distress due to pain, oriented to person only, heart RRR, lungs CTAB, abdomen soft, non-tender, non-distended Objective Last Vital Signs Temp 97.5 F L 08/02/24 22:26 Pulse 73 08/02/24 22:26 Resp 16 08/02/24 22:26 BP 129/80 08/02/24 22:26 Pulse Ox 93 08/02/24 22:26 Time Spent with Patient Time Spent with Patient: >50 minutes Time was spent: preparing to see the patient(eg.review tests), obtaining and/or reviewing separately otained hiistory, ordering medications,tests, procedures, referring, communicating with other health skin care instructor, indepentently interpreting results, counseling the patient and care coordination
[2024-08-03 11:33] VITALS: BP 129/87; PULSE 81; RESP 16; TEMP 36.8; O2SAT 99
--- NOTE | 2024-08-03 13:53 | NUR.NOTE ---
Nursing Note: Transferred care to Daniela JUAREZ. Bedside report was given and questions were answered. Patient appears calm and comfortable at this time sitting with daughter Tomeka.
--- NOTE | 2024-08-03 14:17 | PDOC.CMPRO ---
Date of service: 08/03/24 Time of Service: 14:17 Care Management Progress Note Progress Note Text Progress Note Text: CM met with Brian's , Frances, as requested by , to discuss discharge planning considerations. Frances and RADHA met outside of the room, in order to reduce stimuli for Brian, as there were multiple family members visiting. Frances expressed concern about bringing Brian home at this time, as he has not returned to his baseline functioning or behavior. She discussed how she has been Brian's primary caregiver for over four years, which is when his symptoms of dementia began to impede on his independent level of functioning. She stated that their two daughters have been taking shifts to be with him while at the hospital, and expressed gratitude for their help. Belinda inquired about the process of Brian receiving short term rehab in a facility; CM discussed the process, including the admission criteria and barriers to acceptance (skilled need, goal setting, behaviors, dementia, insurance). CM discussed alternatives to SNF, including HH services at home, private caregivers at home, and community care homes/[facility]FC homes in the area that may be able to provide him care in a detention setting. 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 CM discussed that Brian may not return to baseline behavior while hospitalized (or in another institutionalized setting), due to dementia, as dementia patients generally do better in familiar settings, such as home. CM stated that referrals can be sent to SNFs, and encouraged her to consider alternative options, as he may not be a candidate for short term rehab, considering the barriers. CM will discuss his level of functioning with PT to determine if he is a candidate for rehab, and will send referrals to local SNFs for consideration. CM will continue to follow. SDOH(Care Management) Screening Will the Patient Participate in the Screening?: Unable to obtain Do you worry about having a steady place to live?: no Problems where you live: no known problems In the past 12 months, have you had to go without electric, gas, oil or water in your home?: no Have you or anyone in your house had to go without enough food to eat?: no Has lack of transportation kept you from medical appointments or from doing things needed for daily living?: no Has anyone in your support network made you feel unsafe for any reason?: choose not to answer Social Determinants of Health Comments(SDOH Details): PT WITH DEMENTIA FAMILY ANSWERED QUESTIONS Health Related Social Needs Health related social needs: housing instability, housed, with risk of homelessness(Z59.811)
[2024-08-03] MEDS: Ibuprofen 600 MG TAB PO ×2 (14:54→19:36)
[2024-08-03] MEDS: Acetaminophen 325 MG TAB PO ×2 (14:54→19:35)
[2024-08-03 15:36] VITALS: PULSE 82; RESP 15; TEMP 37.1; O2SAT 97
[2024-08-03] MEDS: Haloperidol 5 MG/ML VIAL 2 MG IM/IV (16:18)
--- NOTE | 2024-08-03 17:01 | NUR.NOTE ---
Addendum entered by Srinath Huang RN 08/03/24 17:53: Pt remains calm in bed with daughter and SALES ADMINISTRATION MANAGER at bedside. He is rouses easily to voice, respirations even. Daughter reports she has removed his wrist watch. Its in my bag and I am taking it home. Original Note: Nursing Note: 1538: Pt at bedside, calm, eating sandwich. Daughter and SALES ADMINISTRATION MANAGER 1:1 at bedside. Pt ambulated 1/2 loop with assist x2 and 3rd person following with w/c. Patient returned to room with SALES ADMINISTRATION MANAGER and daughter . 1557: SALES ADMINISTRATION MANAGER reports Pt has been looking at his watch frequently, mumbling about having things to do and becoming agitated. Pt observed standing in room, pushing bedside table into recliner, attempting to leave room. Unsteady gait. Staff at pt side attempting to hold pt steady, to prevent fall. Patient grabbing and holding staff wrist, twisting wrist to cause pain. At this time he was unable to take verbal direction. Highly resistive. Pushing and grabbing at staff. At that time staff attempted to ambulate patient in order to reduce restriction and allow him to exert his own autonomy. Staff remained at his side to prevent fall, also following with w/c. Patient continues to push at staff or grab and twist wrists of staff, he became verbally aggressive toward staff. MD notified of agitation and combative behaviors. A 1 X PRN 2mg Haldol IM administered per MD order. Patient was able to sit down, then lie down, reduced stimuli in room, low lights. Diversional activities implemented. Patient observed lying quietly with 1:1 staff and daughter, appears calm. At dinner time, pt observed sleeping lightly. Will continue to monitor.
--- NOTE | 2024-08-03 17:01 | NUR.NOTE ---
Nursing Note: Dtr took pt's watch home
[2024-08-03 19:30] VITALS: BP 162/74; PULSE 83; RESP 16; TEMP 36.7; O2SAT 95
[2024-08-03] MEDS: Normal Saline Flush 10 ML SYR IVP ×3 (19:37→23:21)
[2024-08-03] MEDS: QUEtiapine 25 MG TAB PO (22:32)
[2024-08-03 23:11] VITALS: BP 135/67; PULSE 67; RESP 16; TEMP 36.6; O2SAT 99
[2024-08-03] MEDS: diphenhydrAMINE 50 MG/ML VIAL IM (23:48)
[2024-08-03] MEDS: Haloperidol 5 MG/ML VIAL IM (23:48)
--- NOTE | 2024-08-04 01:53 | NUR.NOTE ---
Nursing Note: Around 2330, pt started to climb out of bed and became agitated, pulling at clothes and grabbing bed side rails, pt attempted to stand and became unsteady w/ 2 staff members present. At this time, charge nurse notified to contact daughter as per family request to contact at any sign of agitation. Pt assisted back to laying in bed. Pt incontinent of urine and required full bed change, done w/ pt in the bed due to pt safety (recent administration of IVP morphine, HS seroquel, unsteady gait) to prevent risk of falling. Pt repeatedly grabbing/swatting at staff, pt stated I'm going to fucking kill you, you son of a bitch. Dr. Grimes notified and one time dose of Haldol (5mg) and Benadryl (50mg) IM ordered. Family notified of intervention orders per their request, medications given as per order. Family stated Just give the medications, I'll be there in 15 minutes. Per family, He can go 0-100 (In reference to agitation). Family member remains at bedside. Pt restful at this time, bed alarms on for patient safety.
[2024-08-04 02:57] VITALS: BP 137/104; PULSE 76; RESP 16; TEMP 36.8; O2SAT 96
[2024-08-04] MEDS: MORPHine 2 MG/ML SYR IVP (03:25)
--- NOTE | 2024-08-04 08:58 | PT.INNT ---
PT Notes Visit Reasons: severe sepsis, UTI Patient unavailable Per nurse; family request not to interrupt patient sleep to prevent agitation.
--- NOTE | 2024-08-04 09:36 | NUR.NOTE ---
Nursing Note: Patient daughter called RN to help with toileting. Patient and patient family refusing gait belt, use of walker, non-slip socks, and the use of the commode. RN educated patient and family of safety with ambulating and the importance of safety measures. Patient family aware of risks of ambulating without safety precautions. Patient ambulated to toilet with unsteady gait. Patient urinated in toilet and ambulated back to chair to eat breakfast. More education was done by this RN, patient family still refusing to use safety precautions. This RN notified supervisor in charge and change house attendant of safety concerns. This RN is continuing to monitor patient and use safety precautions as much as family will allow.
[2024-08-04 10:08] VITALS: BP 135/72; PULSE 78; RESP 18; TEMP 36.4; O2SAT 98
[2024-08-04] MEDS: Diclofenac 1% Gel 100 GM TUBE TP (11:33)
--- NOTE | 2024-08-04 11:50 | NUR.NOTE ---
Nursing Note: This RN has applied non-slid socks to patient twice for safer ambulation. Patient daughter continually pulling off non-slip socks. Patient family refusing lovenox and morphine for patient at this time. THis RN has gone in mulitple times to ensure that patient is comfortable and asking about medication administration. Patient has scheduled medications that were due at 0830 that are still being refused. RN is continuing to follow-up and education continues to be provided.
--- NOTE | 2024-08-04 12:39 | PDOC.HHF2F ---
Home Health Referral Home Health Orders Clinical synopsis of why skilled professionals are needed: UTI, severe dementia Registered Nurse: Check all that apply Instruct on new or changed medication(s)/assess compliance: Ordered Physical Therapist: Check all that apply Increase strength & endurance for safe mobility at home: Ordered To design/establish home maintenance program: Ordered Fall reduction therapy program for patient with history of frequent falls: Ordered Home safety evaluation and teaching/gait training including stair management (if applicable): Ordered Occupational Therapist: Evaluate and treat for patient unable to perform ADL/IADL/self-care: Ordered Payable Representative: Assist with community resources: Ordered Assist with director long term care care planning: Ordered Encounter Date and Reason: I certify that a FTF encounter for this patient was performed on August 04, 2024 and that such encounter was related to the primary reason the patient requires home health services. The encounter was conducted in the following manner: By me as the certifying physician, MATERIAL HANDLER 2ND SHIFT, PA or By an inpatient physician, MATERIAL HANDLER 2ND SHIFT or PA during an inpatient stay who communicated findings to me, Certification And Authentication I certify that I composed the above information based on my clinical judgment relating to this patient's medical condition and, if applicable, clinical findings communicated to me by the NPP or inpatient physician who performed the FTF encounter. Name of Provider that will be monitoring home health services: Emil Dominguez
--- NOTE | 2024-08-04 12:40 | DSE_ITS ---
Date of service: 08/04/24 Time of Service: 12:40 DS: Diagnosis Discharge Diagnosis (1) Severe sepsis: Status: Resolved (2) UTI (urinary tract infection): Status: Resolved (3) YESENIA (acute kidney injury): Status: Resolved (4) Infectious encephalopathy: Status: Resolved (5) Dementia: Status: Chronic (6) Back pain: Status: Acute Discharge Plan Disposition Patient Disposition: Home W/Home Health Services Condition: Good Discharge Details Reason For Visit: severe sepsis, UTI Admit Date/Time: 08/01/24 11:00 Admit Provider: Parth Oglesby Attending Provider: Parht Oglesby Primary Care Provider: Emil Dominguez Hospital Course Hospital Course: Patient initially presented with signs and symptoms consistent with severe sepsis secondary to UTI with associated infectious encephalopathy. Patient has a longstanding history of dementia and declining functional status, which did become significantly worse during hospitalization. However, he is mentation did slowly improve during hospitalization though it was not back to his baseline, it did level off to the point that he would improve if he were home in his home environment. Given that he had complete resolution of his infection, it was determined that he was stable for discharge home with home health services. Home Meds and New Rx's Prescriptions: New diclofenac sodium 3 % Gel 100 g topical QID Qty: 100 3RF quetiapine 25 mg Tablet 25 mg PO HS Qty: 90 0RF Discharge Instructions Instructions: Urinary tract infections in adults, Sepsis, Adult (DC) Stand Alone Forms: Nursing Discharge Form Referrals: Emil Dominguez MD [Primary Care Provider] - (Please call PCP to make a follow up appointment for within 1 to 2 weeks. ) Activity:: Activity as Tolerated Equipment/Supplies:: No Equipment Needed Diet:: As Tolerated Discharge Orders Discharge Orders: Discharge Order (Routine); Ordered 08/04/24 Ordered By: Parth Oglesby Discharge Data Discharge Date/Time-TO BE ENTERED AT DEPARTURE: 08/04/24 15:09 DS: Summary Time Spent with Patient providing and/or coordinating discharge services: Greater than 30 minutes Status at Discharge Functional status at discharge: independent ambulation Overall status at discharge: patient is progressing back to baseline Mental Status: mental status grossly normal Speech and Movement: speech and movement normal Mood: congruent mood Affect: normal affect Quality:SDOH Health Related Social Needs: Health related social needs housing instability, house d, with risk of homelessness(Z59.811) Exam Narrative Exam Narrative: elderly gentleman laying in bed in mild distress due to pain, oriented to person only, heart RRR, lungs CTAB, abdomen soft, non-tender, non-distended Psych Mental Status: mental status grossly normal Speech and Movement: speech and movement normal Mood: congruent mood Affect: normal affect DS: Data Vitals/I&O Vitals and I&O: Vital Signs Temperature 97.5 F L 08/04/24 10:08 Temperature Source Tympanic 08/04/24 10:08 Pulse 78 08/04/24 10:08 Pulse Rhythm Regular 08/01/24 12:00 Respiratory Rate 18 08/04/24 10:08 Respiratory Effort Normal 08/01/24 12:00 Respiratory Depth Normal 08/01/24 12:00 Respiratory Pattern Normal 08/01/24 12:00 Blood Pressure 135/72 08/04/24 10:08 Blood Pressure Position Sitting 08/01/24 09:12 Pulse Oximetry 98 08/04/24 10:08 Oxygen Delivery Method Room Air 08/04/24 10:08 Oxygen Flow Rate 0 08/04/24 10:08 Pain Level 0 08/03/24 15:36 Comment pt refused bp 08/03/24 15:36 Intake & Output 08/03/24 08/04/24 08/04/24 17:59 05:59 17:59 Intake Total 660 / 660 20 / 680 Balance 660 / 660 20 / 680 Intake: IV Oral 660 / 660 Other: Urine Color Yellow Yellow [place] Urine Appearance Clear Clear Urine Odor Normal None Comment voided in toilet P voided unmeasured amount into toilet. Data Completed and Pending Labs on day of discharge: Preliminary micro results at discharge 08/01/24 12:51 Blood Culture - Preliminary Blood NO GROWTH 48 HOURS 08/01/24 13:03 Blood Culture - Preliminary Blood NO GROWTH 48 HOURS PFSH All Active Problems (Updated 08/05/24 @ 00:[address]) Back pain (Acute) Palliative care encounter (Acute) ACP (advance care planning) (Acute) Dementia (Chronic) Social History Smoking/Tobacco Use Status: Never Smoking risk assessment performed?: Yes Alcohol Intake: never Housing: house Additional Social history: unable to assess d/t dementia Time Spent with Patient Time Spent with Patient: <45 minutes Time was spent: preparing to see the patient(eg.review tests), obtaining and/or reviewing separately otained hiistory, ordering medications,tests, procedures, referring, communicating with other health career development coordinator, indepentently interpreting results, counseling the patient and care coordination
--- NOTE | 2024-08-04 14:40 | PDOC.CMDIS ---
Date of service: 08/04/24 Time of Service: 14:41 LACE Index Scoring Tool Questions: Length of Stay (in days): 3 Was the patient admitted via the E.D.?: Yes Comorbidities: Dementia E.D. Visits: 0 Answers: Total Score: 9 Risk of Readmission: Low Risk Care Management Discharge Plan Reason for Hospitalization: severe sepsis, UTI Discharge Plan: Brian will return home today with new orders for HH RN, PT, OT, MOBILE APPLICATION ARCHITECT. CM met with his daughters, Tomeka and Elaina, who expressed multiple concerns regarding his nursing care (Brian was awakened every 4H at night, leading to agitation, meds not being given), as well as the care planning prior to discharge. CM met with their mother, who lives with him, at length yesterday, and met with his daughters at length today to discuss the referrals being placed, as well as limitations regarding resources in the community. CM sent a referral to [facility], and provided Tomeka's contact information, as requested, as she will be assisting with fci care planning. CM contacted to update the referral with Tomeka's contact as well. CM discussed the option of community care homes ([facility] homes), and provided contact information for a local community shelter. CM discussed with Tomeka and Elaina that fci care planning is community based, and that they will have the opportunity to follow up with HH MOBILE APPLICATION ARCHITECT and [facility], as well as palliative care, who will follow Brian, preferably with home visits. Elaina will drive Brian home via private vehicle. Brian will follow up with his PCP, and his discharge plan of care. Patient/Family Education Needs: Review discharge instructions and limitations, discussion of self care needs and ferry terminal supervisor planning goals. Services Needed at Discharge: Home Health Care Services (new HH RN, PT, OT, MOBILE APPLICATION ARCHITECT) SDOH Health Related Social Needs: Health related social needs housing instability, housed, with risk of homelessness(Z59.811) Health related social needs: housing instability, housed, with risk of homelessness(Z59.811)
--- NOTE | 2024-08-04 15:59 | NUR.NOTE ---
Nursing Note: Patient family notified of discharge.? Patient daughters very upset with plans of discharge.? platform operations director and primary RN went to patient?s room to give discharge paperwork as well as remove IV.? platform operations director educated family members on plans of discharge.? Patient confused and refused to use wheelchair to discharge from hospital.? Patient walked down to the lobby by daughters and platform operations director.? Primary RN followed patient with wheelchair for safety.? Patient stated the need to urinate.? Primary RN, patient daughter, and patient brother helped patient into wheelchair to go into bathroom in hospital lobby.? Patient proceeded to urinate on the floor due to dementia.? Patient family very tearful throughout this process and stated concerns of being overwhelmed and finding care for the patient.? Patient was assisted with ambulation to the car safely, with wheelchair following patient closely again.? Patient and family departed with no other issues.
== END 2024-08-04 15:09 | disposition home health service (06) | DRG 872 ==
LOC: ER 11:30 → MS 11:47
PROVIDERS: Admitting Provider Family Medicine; Emergency Provider Emergency Medicine; PCP Internal Medicine; Visit Provider Family Medicine
DX: A41.9 Sepsis, unspecified organism (principal); N39.0 Urinary tract infection, site not specified; N17.9 Acute kidney failure, unspecified; G93.49 Other encephalopathy; F03.911 Unspecified dementia, unspecified severity, with agitation; F05 Delirium due to known physiological condition; R65.20 Severe sepsis without septic shock; M54.9 Dorsalgia, unspecified; R29.6 Repeated falls; Z96.641 Presence of right artificial hip joint; M25.551 Pain in right hip
CPT/HCPCS: 00123; 36415; 73521; 80048; 80053; 85027; 87040; 96365; 96375; 97162; 97530; 99285; 70450; 72125; 81003; 81015; 83605; 83735; 85025; 87086; 99223; 99233; 99239; 99291; J1200; J1630; J1650; J2270; J3490

== ENCOUNTER 2024-08-23 14:56 | Outpatient (REF) | payer MEDICARE, SELFPAY | END 2024-08-23 14:57 | disposition home or self-care (01) | LOC: NCHCN 14:56 | PROVIDERS: PCP Family Medicine; Visit Provider Family Medicine | DX: N39.0 Urinary tract infection, site not specified (principal) | CPT/HCPCS: 87086 ==

== ENCOUNTER 2024-09-09 17:19 | Outpatient (REF) | payer MEDICARE, SELFPAY ==
[2024-09-09 21:18] LABS: Bilirubin Negative (Negative); Blood Negative (Negative); Clarity Cloudy (Clear); Glucose Negative (Negative); Ketones Negative (Negative); Leukocyte Esterase Small (Negative); Nitrite Negative (Negative); Specific Gravity >= 1.030 (1.005-1.025); Urobilinogen 0.2 mg/dL (Up to 0.2); pH 5.5 (5-8)
[2024-09-09 21:34] LABS: Bacteria Many HPF (Negative); C & S Indicated? C&S Done As Ordered; Casts Negative LPF (Negative); Crystals Many Calcium Oxalate HPF (Negative); Epithelial Cells Rare HPF (Negative); Mucus Negative (Negative); RBC 0-2 HPF (0-2)
== END 2024-09-09 17:20 | disposition home or self-care (01) ==
LOC: NCHCN 17:19
PROVIDERS: PCP Family Medicine; Visit Provider Family Medicine
DX: N39.0 Urinary tract infection, site not specified (principal)
CPT/HCPCS: 87077; 81003; 81015; 87086; 87186

== ENCOUNTER 2024-09-12 11:20 | Outpatient (REF) | payer MEDICARE, SELFPAY ==
[2024-09-12 10:35] LABS: Bilirubin Negative (Negative); Blood Negative (Negative); Clarity Clear (Clear); Glucose Negative (Negative); Ketones Negative (Negative); Leukocyte Esterase Small (Negative); Nitrite Negative (Negative); Specific Gravity >= 1.030 (1.005-1.025); pH 5.5 (5-8)
[2024-09-12 10:45] LABS: Bacteria Negative HPF (Negative); C & S Indicated? No; Casts 0-2 Hyaline LPF (Negative); Crystals Many Calcium Oxalate HPF (Negative); Epithelial Cells Rare HPF (Negative); Mucus Negative (Negative); RBC Negative HPF (0-2)
== END 2024-09-12 11:21 | disposition home or self-care (01) ==
LOC: NCHCN 11:20
PROVIDERS: PCP Family Medicine; Visit Provider Family Medicine
DX: R30.0 Dysuria (principal); R82.89 Other abnormal findings on cytological and histological examination of urine
CPT/HCPCS: 81003; 81015

== ENCOUNTER 2024-09-27 19:38 | Outpatient (REF) | payer MEDICARE, SELFPAY ==
[2024-09-27 19:15] LABS: Bilirubin Negative (Negative); Blood Trace-intact (Negative); Clarity Sl Cloudy (Clear); Glucose Negative (Negative); Ketones Negative (Negative); Leukocyte Esterase Trace (Negative); Nitrite Negative (Negative); Specific Gravity >= 1.030 (1.005-1.025); Urobilinogen 0.2 mg/dL (Up to 0.2)
[2024-09-27 19:21] LABS: Bacteria Moderate HPF (Negative); C & S Indicated? Yes; Casts Negative LPF (Negative); Crystals Few Calcium Oxalate HPF (Negative); Epithelial Cells Few HPF (Negative); Mucus Negative (Negative); WBC >50 HPF (0-5)
== END 2024-09-27 19:39 | disposition home or self-care (01) ==
LOC: NCHCN 19:38
PROVIDERS: PCP Family Medicine; Visit Provider Family Medicine
DX: N39.0 Urinary tract infection, site not specified (principal); R82.89 Other abnormal findings on cytological and histological examination of urine
CPT/HCPCS: 81003; 81015; 87086

== ENCOUNTER 2024-11-14 15:27 | Outpatient (REF) | payer MEDICARE, SELFPAY ==
[2024-11-14 15:36] LABS: Bilirubin Negative (Negative); Blood Negative (Negative); Clarity Sl Cloudy (Clear); Glucose Negative (Negative); Ketones Negative (Negative); Leukocyte Esterase Small (Negative); Nitrite Negative (Negative); Specific Gravity 1.025 (1.005-1.025); Urobilinogen 0.2 mg/dL (Up to 0.2); pH 5.5 (5-8)
[2024-11-14 15:42] LABS: Epithelial Cells Few HPF (Negative); Other Cells Negative (Negative); RBC Negative HPF (0-2); WBC 20-50 HPF (0-5)
[2024-11-14 15:43] LABS: Bacteria Moderate HPF (Negative); C & S Indicated? Yes; Casts Negative LPF (Negative); Crystals Negative HPF (Negative); Mucus Negative (Negative)
== END 2024-11-14 15:28 | disposition home or self-care (01) ==
LOC: NCHCN 15:27
PROVIDERS: PCP Family Medicine; Visit Provider Nurse Practitioner Family
DX: R82.89 Other abnormal findings on cytological and histological examination of urine (principal)
CPT/HCPCS: 81003; 81015; 87086